=== PATIENT | female | born 1950 | race Caucasian/White ===

== ENCOUNTER 2019-09-11 02:47 | Emergency (ER) | payer MEDICARE, OTHER ==
--- NOTE | 2019-09-11 04:06 | ER Document Report ---
ED General <ANGELITA PETERSON P - Last Filed: 09/26/19 02:09> - General TRAVEL OUTSIDE OF THE [place] IN LAST 30 DAYS: No - Related Data Home Medications: Medications at bedside. <ADRIAN TERRY - Last Filed: 09/30/19 12:52> - General Chief Complaint: Other Stated Complaint: ALTERED MENTAL STATUS Time Seen by Provider: 09/11/19 03:35 Primary Care Provider: LESLIE SEPULVEDA MD [Primary Care Provider] - Follow up as needed - Related Data Allergies/Adverse Reactions: Penicillins Allergy (Verified 09/11/19 04:19) Sulfa (Sulfonamide Antibiotics) Allergy (Verified 09/11/19 04:19) Past Medical History - Social History Smoking Status: Never Smoker Frequency of alcohol use: Rare Family History: None, Other - Family history is noncontributory Patient has suicidal ideation: No Patient has homicidal ideation: No - Past Medical History Cardiac Medical History: Reports: Hx Hypertension <ADRIAN TERRY - Last Filed: 09/30/19 12:52> Physical Exam <ADRIAN TERRY - Last Filed: 09/30/19 12:52> - Vital signs Vitals: Resp BP Pulse Ox 18 132/62 H 97 09/11/19 02:53 09/11/19 02:53 09/11/19 02:53 - Notes Notes: Patient brought in by paramedics with an episode of unresponsiveness. said that he heard a scream and it woke him up. He checked on her and she was having some gurgling respirations and was unresponsive. Around and then was staring. She did not wake up until after the paramedics started to transport her. Had any seizure activity. She has some tongue biting but no incontinence. He said initially she would not follow commands and then later able to get her to move her right hand a little bit but not the left he did not check her legs. Patient reports that she does not remember the paramedics. At this time she denies any history of seizures she has no headaches recent head trauma no abnormal vision chest pain shortness of breath nausea vomiting abdominal pain fevers or diarrhea. Has been good her appetite has His medical history is significant for hypertension fatty liver and frequent UTIs. Social history she does not smoke she reports that she used to drink several drinks a day but over the past several weeks has cut back significantly any previous history of alcohol withdrawal Medications been reviewed she is on Flexeril Ultracet and Ultram but she says she does not take the Ultracet and Ultram at the same time Review of systems pertinent positives and negatives in HPI otherwise all the systems were reviewed and acutely negative PHYSICIAN EXAM -vital signs are noted triage note and note from triage reviewed GENERAL: Well-appearing, well-nourished and in ___acute distress___ HEAD: Atraumatic, normocephalic. EYES: Pupils equal round and reactive to light, extraocular movements intact, no nystagmus or photophobia sclera anicteric, conjunctiva are normal. ENT: nares patent, oropharynx clear without exudates. Moist mucous membranes. There is a small contusion over the right and left lateral aspect of the tongue nontender face NECK: supple without lymphadenopathy no meningeal signs LUNGS: Breath sounds clear to auscultation bilaterally and equal. No wheezes rales or rhonchi. HEART: Rapid and regular ABDOMEN: Soft, nontender, normoactive bowel sounds. EXTREMITIES: No deformity, no edema. NEUROLOGICAL: Alert and oriented x4 cranial nerves symmetrical smile facies and shoulder shrug. Motor strength is symmetric bilaterally upper lower extr emities. Toes are downgoing. She is got a negative Romberg is intact to light touch. She is got no trauma but she has a very mild past pointing PSYCH: Normal mood, normal affect. SKIN: Warm, Dry, normal turgor, no rashes or lesions noted. BACK-nontender in the midline Differential diagnosis includes seizure abnormal electrolytes abnormality arrhythmia (ADRIAN TERRY) Course - Laboratory Result Diagrams: 09/11/19 03:55 09/11/19 03:55 <ANGELITA PETERSON - Last Filed: 09/26/19 02:09> - Laboratory Result Diagrams: 09/11/19 03:55 09/11/19 03:55 <ADRIAN TERRY - Last Filed: 09/30/19 12:52> - Re-evaluation Re-evalutation: 09/11/19 08:08 MDM 69 year old apparently with new onset seizure. etoh vs medicine related. Stable at this point. Received from Dr. Almaguer and he has talked back and forth with [facility] as they have Neurology. Hospital medicine here was uncomfortable watching pt here without Neurologist. 09/11/19 09:01 [facility] transfer team is here and pt is stable awake and alert and being transferred at this time to [facility]. (ANGELITA PETERSON) - Vital Signs Vital signs: Temp Pulse Resp BP Pulse Ox 98.3 F 110 H 20 145/71 H 99 09/11/19 09:03 09/11/19 09:03 09/11/19 09:03 09/11/19 09:03 09/11/19 09:03 - Laboratory Laboratory results interpreted by me: 09/11/19 09/11/19 09/11/19 03:55 03:55 03:55 WBC 3.4 L MCV 99 H MCH 33.6 H Glucose 122 H AST 60 H Alkaline Phosphatase 146 H Total Protein 8.4 H Prolactin 49.5 H Urine Nitrite Urine Urobilinogen 09/11/19 04:35 WBC MCV MCH Glucose AST Alkaline Phosphatase Total Protein Prolactin Urine Nitrite POSITIVE H Urine Urobilinogen 2.0 H Urine was noted she has no acidosis (ADRIAN TERRY) - EKG Interpretation by Me Additional EKG results interpreted by me: 09/11/19 05:03 EKG read by me shows a sinus tachycardia with a rate of 104 there is a left bundle branch block. EKG is upper limits of normal at 0.49 (ADRIAN TERRY) Discharge - Discharge Unit Admitted: Medical Floor <ANGELITA PETERSON - Last Filed: 09/26/19 02:09> <ADRIAN TERRY - Last Filed: 09/30/19 12:52> - Discharge Clinical Impression: Seizure Condition: Fair Disposition: [facility] Referrals: LESLIE SEPULVEDA MD [Primary Care Provider] - Follow up as needed
[2019-09-11] MEDS ORDERED: NORMAL SALINE 500 ML IV ONE (04:09)
[2019-09-11 04:10] LABS: ABSOLUTE LYMPHOCYTES (AUTO) 0.8 10^3/uL (0.5-4.7); ABSOLUTE MONOCYTES (AUTO) 0.3 10^3/uL (0.1-1.4); ABSOLUTE NEUT (AUTO) 2.1 10^3/uL (1.7-8.2); BASOPHILS % (AUTO) 0.9 % (0-2); EOSINOPHILS % (AUTO) 1.4 % (0-6); HEMATOCRIT 39.9 % (36.0-47.0); HEMOGLOBIN 13.5 g/dL (12.0-15.5); LYMPHOCYTES % (AUTO) 24.6 % (13-45); MEAN CORPUSCULAR HEMOGLOBIN 33.6 pg (27.0-33.4); MEAN CORPUSCULAR HGB CONC 33.9 g/dL (32.0-36.0); MEAN CORPUSCULAR VOLUME 99 fl (80-97); PLATELET COUNT 172 10^3/uL (150-450); RED BLOOD COUNT 4.03 10^6/uL (3.72-5.28); RED CELL DISTRIBUTION WIDTH 13.3 % (11.5-14.0); SEGMENTED NEUTROPHILS % (AUTO) 63.1 % (42-78); TOTAL CELLS COUNTED % (AUTO) 100 %; WHITE BLOOD COUNT 3.4 10^3/uL (4.0-10.5)
[2019-09-11] MEDS ORDERED: THIAMINE HCL 100 MG in NORMAL SALINE 50 ML IV ONE (04:10)
[2019-09-11 04:23] LABS: ALKALINE PHOSPHATASE 146 U/L (38-126); ANION GAP 8 (5-19); ASPARTATE AMINO TRANSFERASE 60 U/L (14-36); BILIRUBIN,DIRECT 0.2 mg/dL (0.0-0.4); BILIRUBIN,TOTAL 0.8 mg/dL (0.2-1.3); BLOOD UREA NITROGEN 11 mg/dL (7-20); CARBON DIOXIDE 30 mmol/L (22-30); CHLORIDE 101 mmol/L (98-107); GLUCOSE 122 mg/dL (75-110); POTASSIUM 4.2 mmol/L (3.6-5.0); TOTAL PROTEIN 8.4 g/dL (6.3-8.2)
[2019-09-11 04:27] LABS: CREATINE KINASE 75 U/L (30-135)
[2019-09-11 04:28] LABS: ALCOHOL < 10 mg/dL (NONE DETECTED)
[2019-09-11 04:44] LABS: INTERNATIONAL RATION (INR) 1.01; PROTHROMBIN TIME 13.3 SEC (11.4-15.4)
[2019-09-11 05:00] LABS: APPEARANCE,URINE CLEAR; BILIRUBIN,URINE NEGATIVE (NEGATIVE); COLOR,URINE AMBER; GLUCOSE, URINE NEGATIVE (NEGATIVE); KETONES,URINE NEGATIVE (NEGATIVE); LEUKOCYTE ESTERASE,URINE NEGATIVE (NEGATIVE); NITRITE,URINE POSITIVE (NEGATIVE); PROTEIN,URINE NEGATIVE (NEGATIVE); URINE SPECIFIC GRAVITY 1.012
[2019-09-11] MEDS ORDERED: THIAMINE HCL INJ 200 MG/2 ML VIAL ONE (05:40)
--- NOTE | 2019-09-11 06:47 | RADIOLOGY REPORT (SQ) ---
CT head without contrast on 09/11/2019 at 5:19 AM CLINICAL INDICATION: Altered mental status TECHNIQUE: Multiple axial images are obtained throughout the head without the administration of contrast. This exam was performed according to our departmental dose-optimization program, which includes automated exposure control, adjustment of the mA and/or kV according to patient size and/or use of iterative reconstruction technique. Total DLP is 1043.77 mGy*cm. COMPARISON: None FINDINGS: There is no hydrocephalus. There is no CT evidence of acute infarct. There is no hemorrhage. There are no abnormal extra-axial fluid collections. There is no mass, mass effect or midline shift. Mucous retention cyst is noted in the right maxillary sinus. No bony abnormality is noted. IMPRESSION: No acute intracranial abnormality.
[2019-09-11 09:05] VITALS: BP 145/71
--- NOTE | 2019-09-11 14:33 | EKG REPORT ---
SEVERITY:- ABNORMAL ECG - SINUS TACHYCARDIA LEFT BUNDLE BRANCH BLOCK : Confirmed by: Aileen Faria MD 11-Sep-2019 14:32:34
== END 2019-09-11 09:10 ==
LOC: ER 02:47
DX: R56.9 Unspecified convulsions (principal); R41.82 Altered mental status, unspecified; I10 Essential (primary) hypertension; Z88.0 Allergy status to penicillin; Z88.2 Allergy status to sulfonamides; Z87.440 Personal history of urinary (tract) infections
CPT/HCPCS: 93005; 99285; 96361; 96374; 36415; 80307; 82550; 83735; 85025; 85610; 80053; 81001; 84146; 70450; 93010; J3411; J7040